=== PATIENT | female | born 1960 | race African-American/Black ===

== ENCOUNTER → 2020-09-21 09:30 | Outpatient (CLI) | payer BC, SELFPAY ==
--- NOTE | ~2020-09-21 | CT_ITS ---
EXAMINATION: CT facial bones wo con DATE: 09/21/2020 09:54 INDICATION: Chronic sinusitis. History of mouth sores. TECHNIQUE: Computed tomography (CT) of the facial bones and maxillofacial region was performed withou t intravenous contrast. Automated exposure control and iterative reconstruction technique were employ ed. Exam dose: 250.90 mGy-cm total exam DLP. COMPARISON: None. FINDINGS: The paranasal sinuses and mastoid air cells are normally developed and aerated. There is leftward deviation of the nasal septum. There is soft tissue swelling of the nasal turbinate s. The estimated units are patent. No facial fracture is detected. The frontozygomatic sutures, orbital rims and tavares, nasal bones, max illary bones, zygomatic arches are intact. Normal alignment at the temporomandibular joints. No vaishnavi bular fracture or bone destruction. Minimal anterolisthesis at C4-5. Degenerative change at the apophyseal joints of the included upper a nd mid cervical spine. Prominent degenerative disc disease at C5-6. IMPRESSION: No facial fracture The paranasal sinuses, ostiomeatal units and mastoid air cells are normally developed and aerated Soft tissue swelling of the nasal turbinates Leftward deviation of nasal septum Reviewed, dictated and finalized at [facility]. Reviewed, dictated and finalized at [facility] IMPRESSION: No facial fracture The paranasal sinuses, ostiomeatal units and mastoid air cells are normally dev eloped and aerated Soft tissue swelling of the nasal turbinates Leftward deviation of nasal septum
== END ==
PROVIDERS: PCP Family Medicine; Visit Provider Otolaryngology
DX: J32.9 Chronic sinusitis, unspecified (principal); J34.2 Deviated nasal septum
CPT/HCPCS: 70486